=== PATIENT | male | born 1995 | race Native Hawaiian/Other Pacific Islander ===

== ENCOUNTER 2017-10-15 07:46 | Emergency (ER) | payer BC, OTHER ==
[2017-10-15 08:05] VITALS: RESP 18; O2SAT 100
[2017-10-15] MEDS ORDERED: Lidocaine 2% Inj (20ml) INFIL ONE (08:09)
--- NOTE | 2017-10-15 08:10 | C.PDOC ---
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 Patient states that he cut his finger accidentally when attempting to cut an avocado. Patent denies other injuries and excessive wound swelling. Time Seen by Provider: 10/15/17 07:55 Chief Complaint (Nursing): Abnormal Skin Integrity History Per: Patient History/Exam Limitations: no limitations Onset/Duration Of Symptoms: Mins Current Symptoms Are (Timing): Still Present Past Medical History Reviewed: Historical Data, Nursing Documentation, Vital Signs Vital Signs: Last Vital Signs Temp 98.0 F 10/15/17 07:50 Pulse 87 10/15/17 07:50 Resp 18 10/15/17 07:50 BP 147/88 10/15/17 07:50 Pulse Ox 100 10/15/17 08:37 Family History: States: No Known Family Hx - Social History Hx Alcohol Use: No Hx Substance Use: No - Immunization History Hx Tetanus Toxoid Vaccination: No Hx Influenza Vaccination: No Hx Pneumococcal Vaccination: No Review Of Systems Except As Marked, All Systems Reviewed And Found Negative. Constitutional: Negative for: Other (other injuries ) Skin: Negative for: Other (excessive swelling of left 2nd finger) Physical Exam - Physical Exam Appears: Well, Non-toxic, No Acute Distress Skin: Normal Color, Warm, Dry Head: Atraumatic, Normacephalic Eye(s): bilateral: Normal Inspection Ear(s): Bilateral: Normal Neck: Normal ROM, Supple Chest: Symmetrical, No Deformity Cardiovascular: Rhythm Regular Respiratory: Normal Breath Sounds, No Rales, No Rhonchi, No Wheezing Extremity: Normal ROM (x4), No Tenderness, Capillary Refill (<2 sec), Other (2 cm laceration on mid phalanx of left 2nd finger; no active bleeding; no grossly tender dysfunction; no foreign body) Pulses: Left Radial: Normal, Right Radial: Normal Neurological/Psych: Oriented x3, Normal Speech, Normal Motor, Normal Sensation, Normal Reflexes, No Other (focal deficits) Gait: Steady ED Course And Treatment O2 Sat by Pulse Oximetry: 100 (RA) Pulse Ox Interpretation: Normal Progress Note: Impression: 2 cm laceration on mid phalanx of 2nd finger. Plan: -- lidocaine 2%. Reassess: Procedure: Wound was anesthetized, cleansed thoroughly, NS irrigation, and explored: No foreign body or deep structure involvement was detected. Entire laceration closed with sutures. Neuro intact. No focal deficits. Patient was instructed to keep area dry. Reevaluation Time: 08:36 Reassessment Condition: Improved (FINGER SPLINT APPLIED FOR IMMOBILIZATION.) Laceration - Laceration Repair No standard instances Wound Length (In cm): 2 Description Of Wound: Linear, Clean Wound Cleansed With: Betadine, Sterile Saline Anesthesia: Lidocaine 2% Wound Examination: Irrigated With Saline, No FB With Wound Exploration Wound Closure: Suture Suture Technique And Material Used: Interrupted, Prolene (4.0 x 3) Wound Complexity: Simple Disposition Counseled Patient/Family Regarding: Diagnosis, Need For Followup - Disposition Referrals: [facility] [Outside] [facility] [Outside] [facility] [Provider Group] Disposition: HOME/ ROUTINE Disposition Time: 08:36 Condition: IMPROVED Additional Instructions: RETURN IN 7-10 DAYS FOR SUTURE REMOVAL. CLEAN WOUND TWICE DAILY, WOUND CARE INSTRUCTED. Instructions: Laceration Repair With Stitches (DC) Forms: [employer] ([place]an) - Clinical Impression Clinical Impression: Finger laceration - Scribe Statement The provider has reviewed the documentation as recorded by the Scribe Amador Do Provider Attestation: All medical record entries made by the Scribe were at my direction and personally dictated by me. I have reviewed the chart and agree that the record accurately reflects my personal performance of the history, physical exam, medical decision making, and the department course for this patient. I have also personally directed, reviewed, and agree with the discharge instructions and disposition.
[2017-10-15] MEDS ORDERED: Lidocaine 2% MPF (5 ml) Inj ONE (08:13)
[2017-10-15 08:54] VITALS: BP 123/81; PULSE 71; TEMP 98.4
== END 2017-10-15 08:53 | disposition home or self-care (01) ==
LOC: C.ER 07:46
DX: S61.211A Laceration without foreign body of left index finger without damage to nail, initial encounter (principal); W26.0XXA Contact with knife, initial encounter; Y93.G1 Activity, food preparation and clean up